=== PATIENT | male | born 1975 | race Caucasian/White ===

== ENCOUNTER 2017-01-15 12:33 | Inpatient (IN) | payer OTHER ==
[~2017-01-15] VITALS: Ht 190.5 cm; Wt 92.3 kg
[2017-01-15 14:17] LABS: HEMOGLOBIN 14.3 gm/dl (14.0-17.5); RED BLOOD COUNT 5.16 M/UL (4.20-5.50); WHITE BLOOD COUNT 12.8 K/UL (4.5-11.0)
[2017-01-15] MEDS ORDERED: NEURONTIN 300300 MG PO (22:53)
[2017-01-15] MEDS ORDERED: NORCO 10-325 T1 EACH PO (22:54)
[2017-01-16 06:45] LABS: WHITE BLOOD COUNT 9.8 K/UL (4.5-11.0)
[2017-01-16 06:48] LABS: HEMOGLOBIN 12.2 gm/dl (14.0-17.5); RED BLOOD COUNT 4.52 M/UL (4.20-5.50)
[2017-01-17 06:51] LABS: HEMOGLOBIN 12.4 gm/dl (14.0-17.5); RED BLOOD COUNT 4.53 M/UL (4.20-5.50); WHITE BLOOD COUNT 7.4 K/UL (4.5-11.0)
[2017-01-17] MEDS ORDERED: CLINDAMYCIN HC300 MG PO (12:08)
== END 2017-01-17 12:52 | disposition home or self-care (01) | DRG 863 ==
LOC: ER1 12:33 → ZEROF 16:21 → MED SURG 4 16:21
PROVIDERS: Physician Assistant; ADMIT Emergency Medicine
DX: T81.4XXA Infection following a procedure, initial encounter (principal); L03.311 Cellulitis of abdominal wall; C64.1 Malignant neoplasm of right kidney, except renal pelvis; M60.9 Myositis, unspecified; Z90.5 Acquired absence of kidney; R50.9 Fever, unspecified; K21.9 Gastro-esophageal reflux disease without esophagitis; L90.5 Scar conditions and fibrosis of skin; M54.40 Lumbago with sciatica, unspecified side; Z88.2 Allergy status to sulfonamides; Z79.891 Long term (current) use of opiate analgesic; Z79.899 Other long term (current) drug therapy
CPT/HCPCS: 36415; 80048; 80053; 81001; 83605; 83735; 85025; 85027; 87040; 87081; 96365; 96366; 96367; 96375; 99285; J1650; J2270; J2405; J2543; J3370; J7030; J7050; J7070; Q0163

== ENCOUNTER 2017-01-22 | Emergency (ER) | payer OTHER ==
[~2017-01-22] MED LIST: CLINDAMYCIN HC300 MG PO; NEURONTIN 300300 MG PO; NORCO 10-325 T1 EACH PO
== END 2017-01-23 00:20 | disposition left against medical advice (07) ==
DX: Z53.1 Procedure and treatment not carried out because of patient's decision for reasons of belief and group pressure (principal)
CPT/HCPCS: 87081; 87880

== ENCOUNTER → 2017-04-27 | Outpatient (CLI) | payer OTHER | LOC: KOH-I 13:03 | DX: M54.9 Dorsalgia, unspecified (principal); M25.562 Pain in left knee | CPT/HCPCS: 72110; 73564 ==

== ENCOUNTER 2017-08-27 20:43 | Emergency (ER) | payer OTHER ==
[2017-08-27 22:21] LABS: RED BLOOD COUNT 4.53 M/UL (4.20-5.50); WHITE BLOOD COUNT 4.9 K/UL (4.5-11.0)
== END 2017-08-28 00:56 | disposition home or self-care (01) ==
LOC: ER1 20:43
PROVIDERS: Physician Assistant
DX: R10.31 Right lower quadrant pain (principal); R30.0 Dysuria; N18.9 Chronic kidney disease, unspecified; Z85.528 Personal history of other malignant neoplasm of kidney; Z88.2 Allergy status to sulfonamides
CPT/HCPCS: 36415; 80053; 81001; 82150; 83605; 83690; 85025; 96361; 96374; 96375; 99284; J2270; J2405; J7030